=== PATIENT | male | born 1990 | race Caucasian/White ===

== ENCOUNTER 2020-05-27 16:38 | Emergency (ER) | payer OTHER ==
[2020-05-27 16:48] VITALS: RESP 18
[2020-05-27] MEDS ORDERED: DIPH,PERTUS(ACELL)TETVAC-LF 0.5 ML VIAL IM ONE (17:47)
--- NOTE | 2020-05-27 17:49 | ED ---
Skin/Abscess/FB HPI - General Chief complaint: Skin/Abscess/Foreign Body Stated complaint: [facility]-exposure Time Seen by Provider: 05/27/20 16:55 Source: patient, RN notes reviewed Mode of arrival: ambulatory Limitations: no limitations - History of Present Illness Initial comments: This is a 20-year-old male with a benign past medical history who comes in for evaluation after exposure to blood and abrasion on his left hand. He did apprehend a suspect and brought him into the emergency department due to the exposure to blood from the patient with a bloody nose he is being tested for HIV. He denies any fevers chills nausea vomiting sweats or other symptoms no other medical concerns at this time. - Related Data Allergies Allergy/AdvReac Type Severity Reaction Status Date / Time No Known Allergies Allergy Verified 05/27/20 16:40 Review of Systems ROS Statement: Those systems with pertinent positive or pertinent negative responses have been documented in the HPI. ROS Other: All systems not noted in ROS Statement are negative. Past Medical History Past Medical History: No Reported History History of Any Multi-Drug Resistant Organisms: None Reported Past Surgical History: No Surgical Hx Reported Past Psychological History: No Psychological Hx Reported Smoking Status: Never smoker Past Alcohol Use History: None Reported Past Drug Use History: None Reported General Exam - General Exam Comments Initial Comments: This is a well-developed well-nourished awake alert oriented 3 male Limitations: no limitations General appearance: alert, in no apparent distress Head exam: Present: atraumatic, normocephalic, normal inspection Eye exam: Present: normal appearance, PERRL, EOMI. Absent: scleral icterus, conjunctival injection, periorbital swelling Neck exam: Present: normal inspection Extremities exam: Present: full ROM, normal capillary refill, other (Facial abrasions seen to the palmar aspect of the left hand as well as the lateral aspect of the proximal left index finger.). Absent: tenderness Neurological exam: Present: alert, oriented X3, CN II-XII intact Psychiatric exam: Present: normal affect, normal mood Skin exam: Present: warm, dry, normal color. Absent: intact Course Vital Signs 05/27/20 16:41 Temperature 99.9 F H Pulse Rate 110 H Respiratory 18 Rate Blood Pressure 136/92 O2 Sat by Pulse 95 Oximetry - Reevaluation(s) Reevaluation #1: 05/27/20 17:53 Patient did demonstrate an elevated temperature upon arrival he does state he had this happen in the suspected she will bring history as 10 is also very warm outside today. He's had no symptoms of any type of illness. Disposition Clinical Impression: Exposure to blood, Abrasion of left hand Disposition: HOME SELF-CARE Condition: Good Instructions (If sedation given, give patient instructions): Abrasion (ED) Is patient prescribed a controlled substance at d/c from ED?: No Referrals: None,Stated [Primary Care Provider] - 1-2 days
[2020-05-27 17:59] VITALS: BP 132/87; PULSE 92; TEMP 98.8
[2020-05-28 06:52] LABS: Hepatitis B Surface AB- Quant 214.5 mIU/mL; Hepatitis B Surface Antibody Reactive (Non-Reactive); Hepatitis B Surface Antigen Non-Reactive (Non-Reactive); Hepatitis C IgG Antibody Non-Reactive (Non-Reactive)
[2020-05-28 07:38] LABS: HIV 2 AB Non-Reactive (Non-Reactive); HIV AB P24 Non-Reactive (Non-Reactive); HIV P24 AG Non-Reactive (Non-Reactive)
== END 2020-05-27 17:58 | disposition home or self-care (01) ==
LOC: EC 16:38
DX: S60.512A Abrasion of left hand, initial encounter (principal); Z77.21 Contact with and (suspected) exposure to potentially hazardous body fluids; Z23 Encounter for immunization; X58.XXXA Exposure to other specified factors, initial encounter; Y92.69 Other specified industrial and construction area as the place of occurrence of the external cause; Y99.0 Civilian activity done for income or pay
CPT/HCPCS: 36415; 86706; 86803; 87340; 87390; 90471; 90715; 99283